=== PATIENT | female | born 1990 | race Caucasian/White ===

== ENCOUNTER 2021-01-21 07:00 | Outpatient (CLI) | payer OTHER, SELFPAY ==
[2021-01-21 07:08] VITALS: BMI 34.6
[2021-01-21] MEDS: Lactated Ringers 1,000 ML 125 ML IV (07:25)
[2021-01-21 07:27] VITALS: BP 117/71; PULSE 89
[2021-01-21 07:31] VITALS: PULSE 82; TEMP 37.5; O2SAT 97
--- NOTE | 2021-01-21 08:47 | PCM.HP.OB ---
- Problem List (1) 37 weeks gestation of Status: Acute (2) Breech presentation Status: Acute History Date of Admission: 01/21/21 Final LASHAUN: 02/08/21 Gestational age: 37 Weeks and 3 Days History of this : This is a 30 year-old at 37w3d who presents for a scheduled external cephalic version for breech presentation. She has no complaints today. Allergies amoxicillin [From Augmentin] Allergy (Verified 01/21/21 07:41) NEEDS FOLLOW-UP clavulanic acid [From Augmentin] Allergy (Verified 01/21/21 07:41) NEEDS FOLLOW-UP Penicillins Allergy (Verified 01/21/21 07:41) NEEDS FOLLOW-UP Home Medications: Home Medications Prenatabs FA 01/21/21 Vitamin D 01/21/21 Number of Fetus(es): 1 NST - FHR Rate Baby A Baseline: 140 Variability:: Moderate Accelerations:: 15 x 15 Decelerations:: None NST Reactive:: Yes FHR Category:: Category I Uterine Activity:: No regular ctx's History Past Pregnancies: Past Pregnancies Delivery Date Name GA/ Weeks Outcome Route Wt Sex Labor Length Anesthesia Delivery Location Provider FOB Labs: See [facility] records Physical Exam Vitals: Vital Signs Temp Pulse BP Pulse Ox 99.5 F H 82 117/71 97 01/21/21 07:31 01/21/21 07:31 01/21/21 07:27 01/21/21 07:31 General: Alert, No apparent distress HEENT: Atraumatic Abdomen: Soft, Non Tender, Gravid Extremities:: No edema Neurological: Neuro grossly intact Presentation: Breech Assessment/Plan All Active Problems 37 weeks gestation of (Acute) Breech presentation (Acute) This is a 30 year-old who presents at 37w3d for ECV for breech presentation. - TAUS performed confirming breech presentation. Discussed r/b/a to an external cephalic version with patient. She gave consent and desires to proceed with the scheduled version. She understands an alternative is a schedule section and that risks include but are not limited to placental abruption, rupture of membranes, cord prolapse, distress, changes in heart rate, need for an emergent section - Rh positive - NST reactive - monitoring after procedure - See op report for procedure
--- NOTE | 2021-01-21 08:54 | PCM.OPRPT ---
Problem List (1) 37 weeks gestation of Status: Acute (2) Breech presentation Status: Acute Report of Operation Date of Procedure: 01/21/21 Pre-Operative Diagnosis: 37 week gestation, breech presentation Post-Operative Diagnosis: As above Surgery/Procedure Performed:: External cephalic version Description of Surgical Findings:: Breech presentation on ultrasound at the start and end of the procedure internal affairs commander: Argenis Farias - She assisted with the entire procedure from start to finish. She also assisted in counseling the patient before and after the procedure Special Medications: None Specimen's removed: None Drains: None Estimated Blood Loss (mL): None Fluids Replaced: None Description of Procedure: A bedside ultrasound was performed which confirmed the single intrauterine and doretha breech presentation. NST reactive. She had an ultrasound performed 2 days prior showing a posterior placenta and JUNE 7.1 cm. The pelvis was located in the maternal LLQ, spine along the maternal left side, and head in the maternal RUQ. Using manual pressure, the fetus was manipulated with gentle pressure from the palms against the buttock and posterior occiput to stimulate a forward roll. In total, three attempts where made. heart rates were obtained between each attempt and were reassuring. On the final attempt, the fetus shifted into a transverse lie and then spontaneously went back to breech presentation. Following the procedure, she was placed on the monitor to monitor heart rate for a total of 1 hour. Discussed to call with pain, bleeding, leaking fluid, DFM. Will assess if ready for discharge after 1 hour of monitoring. Grafts/Implants Used: None - Complications None - Admit VTE Documentation VTE Present on Admission: No
[2021-01-21 09:23] VITALS: BP 116/70; PULSE 70
== END 2021-01-21 09:30 | disposition home or self-care (01) ==
LOC: WPOUT 07:06 → WP 07:07
PROVIDERS: PCP Family Medicine; Referring Provider Obstetrics & Gynecology; Visit Provider Obstetrics & Gynecology
DX: O32.1XX0 Maternal care for breech presentation, not applicable or unspecified (principal); Z3A.37 37 weeks gestation of pregnancy
CPT/HCPCS: 96365; 96366; 36415; 59025; 59050; 59412; 99218; J7120; G0378

== ENCOUNTER → 2021-01-28 16:36 | Outpatient (CLI) | payer OTHER, SELFPAY ==
[2021-01-21 07:08] VITALS: BMI 34.6
== END ==
PROVIDERS: PCP Family Medicine; Visit Provider Obstetrics & Gynecology
DX: Z03.818 Encounter for observation for suspected exposure to other biological agents ruled out (principal)
CPT/HCPCS: 87635; C9803; U0002

== ENCOUNTER 2021-02-02 04:55 | Inpatient (IN) | payer OTHER, SELFPAY ==
[2021-02-02] VITALS (17 sets, daily range): BP systolic 90–126; BP diastolic 55–79; PULSE 66–97; RESP 16; TEMP 36.1–37.1; O2SAT 95–99; BMI 34.9
[2021-02-02] MEDS: Lactated Ringers 1,000 ML 999 ML IV (05:20)
[2021-02-02 05:36] LABS: Absolute Lymphocyte Count 1.66 X10^3/uL (0.83-4.51); Absolute Neutrophil Count 5.4 X10^3/uL (2.0-7.7); Basophil# 0.06 X10^3/uL; Basophil% 0.8 % (0-1); Eosinophil# 0.12 X10^3/uL; Eosinophils% 1.5 % (0-5); Hematocrit 40.5 % (37-47); Hemoglobin 13.7 g/dL (12.0-15.0); Lymphocyte # 1.66 X10^3/ul (4.0); Lymphocyte % 21.1 % (19-41); Mean Corp Hgb Conc 33.8 g/dL (32-36); Mean Corpuscular Hgb 31.3 pg (27.0-32.0); Mean Corpuscular Volume 92.5 fL (81-99); Mean Platelet Vol. 12.7 fl (6.2-12.0); Monocyte# 0.61 X10^3/uL; Monocyte% 7.7 % (0-10); NRBC Flagged by Analyzer 0 % (0-5); Neutrophil % 68.5 % (47-70); Platelet Count 233 K/mm3 (150-450); RBC Distribution Width CV 12.4 % (11.6-14.6); RBC Distribution Width SD 42.3 fl (35.1-43.9); Red Blood Count 4.38 M/mm3 (4.2-5.4); White Blood Count 7.9 K/mm3 (4.4-11.0)
[2021-02-02] MEDS: Acetaminophen 500 MG Tablet 1000 MG PO ×3 (06:30→18:00)
[2021-02-02] MEDS: Lactated Ringers 1,000 ML 150 ML IV (06:31)
[2021-02-02] MEDS: Sodium Citrate/Citric Acid 30 ML UDC PO (07:02)
[2021-02-02] MEDS: Cefazolin 2 GM in 0.9% Normal Saline 100 ML IV (07:20)
[2021-02-02] MEDS: Oxytocin 30 units/NS 500 ml 30 UNITS/500 ML IV.SOLN 167 UNITS IV (08:45)
[2021-02-02] MEDS: Ketorolac 30 MG/ML Syringe IV ×3 (09:02→20:00)
[2021-02-02] MEDS: Senna/Docusate Sodium 1 Tablet PO (10:43)
[2021-02-02] MEDS: Lactated Ringers 1,000 ML 100 ML IV (11:45)
[2021-02-02] MEDS: 0.9% Saline Lock 10 ML Syringe IV ×2 (14:21→20:00)
[2021-02-02] MEDS: Enoxaparin 40 MG/0.4 ML Syringe SC (20:01)
[2021-02-03 00:02] VITALS: BP 110/57; PULSE 80; RESP 15; TEMP 36.6; O2SAT 95
[2021-02-03] MEDS: 0.9% Saline Lock 10 ML Syringe IV (02:24)
[2021-02-03] MEDS: Ketorolac 30 MG/ML Syringe IV (02:24)
[2021-02-03 05:45] VITALS: BP 106/66; PULSE 77; RESP 16; TEMP 36.6; O2SAT 96
[2021-02-03 06:05] LABS: Hematocrit 35.5 % (37-47); Hemoglobin 11.9 g/dL (12.0-15.0); Mean Corp Hgb Conc 33.5 g/dL (32-36); Mean Corpuscular Hgb 31.8 pg (27.0-32.0); Mean Corpuscular Volume 94.9 fL (81-99); Mean Platelet Vol. 12.1 fl (6.2-12.0); Platelet Count 170 K/mm3 (150-450); RBC Distribution Width CV 12.6 % (11.6-14.6); RBC Distribution Width SD 44.1 fl (35.1-43.9); Red Blood Count 3.74 M/mm3 (4.2-5.4); White Blood Count 10.3 K/mm3 (4.4-11.0)
[2021-02-03] MEDS: Acetaminophen 500 MG Tablet 1000 MG PO ×4 (06:31→18:56)
[2021-02-03 08:04] VITALS: BP 121/59; PULSE 84; RESP 18; TEMP 36.3
--- NOTE | 2021-02-03 08:35 | PCM.HPOB.BLA ---
- Problem List (1) Breech presentation Status: Acute (2) 39 weeks gestation of Status: Acute History and Physical Date of Admission: 02/02/21 DATE OF SERVICE: January 26, 2021 ? PROBLEM:?breech presentation ? DIAGNOSIS:?breech presentation ? PAST SURGICAL HISTORY:? PAST SURGICAL HISTORYExpand by Default PAST SURGICAL HISTORY Procedure Laterality Date ? PAST SURGICAL HISTORY OF ? 2009 ? Right foot-ORIF, stress fx. ? PAST MEDICAL HISTORY:? PAST MEDICAL HISTORYExpand by Default PAST MEDICAL HISTORY Diagnosis Date ? Abnormal glandular Papanicolaou smear of cervix 06/2017 ? Abn. Pap smear (cervix), LGSIL ? Allergic rhinitis due to other allergen ? ? Anemia ? ? navicular stress fracture ? ? SUBJECTIVE:?No ctx, vb, lof. Good FM.? ? SOCIAL HISTORY:? SOCIAL HISTORYExpand by Default Social History ? Tobacco Use ? Smoking status: Never Smoker ? Smokeless tobacco: Never Used Substance Use Topics ? Alcohol use: Not Currently ? ? Comment: Occasionally ? Drug use: No ? Current Outpatient Medications on File Prior to Visit Medication Sig ? cholecalciferol, vitamin D3, (VITAMIN D3 ORAL) Take by mouth. ? no122/iron/folic acid ( MULTI ORAL) Take by mouth once daily. No current facility-administered medications on file prior to visit. ALLERGIESExpand by Default ALLERGIES Allergen Reactions ? Augmentin [Amoxicil* Rash ? Adhesive Tape (Erin* Rash ? ? Adhesive spray ? Penicillins ? Rash ? OBJECTIVE: ? VITALS:? BP 110/78 ? Wt 217 lb 3.2 oz (98.5 kg) ? LMP 05/04/2020 (Exact Date) ? BMI 35.06 kg/m? ? HEENT: ?Normocephalic, atraumatic, Mucus membranes moist without lesions. ? NECK: ???Soft and Supple. ?No adenopathy , thyromegaly or bruits. ? SKIN: No lesions. ? CHEST: Clear to auscultation. ?No wheezes or rales. ?Good air exchange. ? HEART: Regular rate and rhythm ?No S3 or S4. ?No gallops or rubs. ? BACK: Nontender with no CVA tenderness. ? ABDOMEN: Soft, non-tender, non-distended, no masses, no hepatosplenomegaly. ? LOWER EXTREMITIES: There was no pitting edema, no palpable cords and no skin changes. ? ? ? ASSESSMENT:?breech presentation ? PLAN:?Patient had attempted ECV. ?Baby breech today. Discussed section in detail and questions answered. The rationale for the proposed surgery was discussed in addition to risks, benefits, and alternatives. ?General pre- and post-operative care was reviewed. ?Questions were answered. ?After discussion, the patient indicated a desire to proceed with the planned surgery. Consent signed. To schedule surgery and covid test.? ? Prabha Brooks,?DO
--- NOTE | 2021-02-03 08:37 | OP.PCM_ITS ---
Problem List (1) Breech presentation Status: Acute (2) 39 weeks gestation of Status: Acute (3) S/P section Status: Acute Report of Operation Date of Procedure: 02/02/21 Pre-Operative Diagnosis: 39 week gestation, breech presentation Post-Operative Diagnosis: As above Surgery/Procedure Performed:: PLTCS via pfannenstiel incision Description of Surgical Findings:: VMI in breech presentation. Clear fluid. Normal appearing and intact placenta with 3 VC. Normal appearing uterus and bilateral tubes and ovaries. product safety engineer: Oskar Whitfield assisted for the entire surgery from start of incision to closure. He closed the skin incision and placed the dressing. Type of Anesthesia:: Spinal Special Medications: None Specimen's removed: Placenta Drains: Cisneros Estimated Blood Loss (mL): 400 Fluids Replaced: See anesthesia record Description of Procedure: The patient was taken to the operating room where spinal anesthesia was found to be adequate. She was prepped and draped in the dorsal position with a leftward tilt. A scalpel was used to make a Pfannenstiel skin incision and this was carried down to the underlying layer of fascia. Fascia was incised in midline. The fascia was extended laterally using Guevara scissors. The fascia was dissected off of the rectus muscles with combination of sharp and blunt dissection. Rectus muscles were midline. The peritoneum was entered sharply with good visualization of the bladder. The incision was extended bluntly. A low transverse incision was made on the uterus with a scalpel. The uterine incision was extended bluntly. Clear fluid was present. Viable male was delivered in breech presentation atraumatically and without any force or delay. The head was flexed during delivery. The cord was clamped and cut after a brief delay. The baby was handed off to the nursery staff. The placenta was deliv ered with manual extraction. The placenta was normal-appearing and intact with a three-vessel cord. Uterus was exteriorized. The uterus was closed with Vicryl in 2 layers. Several additional [id number] sutures were placed for hemostasis. Uterus was placed back into the abdomen. Normal adnexa were noted. Uterine incision was hemostatic. Arrista was placed over the hysterotomy. The peritoneum was closed with Vicryl in a running fashion. The rectus muscles were noted to be hemostatic. The fascia was closed with Vicryl in a running fashion. The subcutaneous space was made hemostatic with Bovie cautery. Subcutaneous space was reapproximated with vicryl. The skin was closed with Monocryl subcuticular fashion. Dressing was placed. Instrument, sponge, needle counts were correct. The patient was taken to recovery in stable condition. Grafts/Implants Used: None - Complications None - Admit VTE Documentation VTE Present on Admission: No VTE Mechan Device Prophylaxis: SCD's VTE Pharm Prophylaxis ordered?: No
[2021-02-03] MEDS: Ibuprofen 600 MG Tablet PO ×3 (09:22→20:01)
[2021-02-03] MEDS: Senna/Docusate Sodium 1 Tablet PO (12:45)
[2021-02-03 13:50] VITALS: BP 115/65; PULSE 70; RESP 16; TEMP 36.1
[2021-02-03] MEDS: Enoxaparin 40 MG/0.4 ML Syringe SC (20:01)
[2021-02-03 21:15] VITALS: BP 108/60; PULSE 82; RESP 16; TEMP 36.3; O2SAT 96
[2021-02-04] MEDS: Acetaminophen 500 MG Tablet 1000 MG PO ×4 (00:13→19:05)
[2021-02-04] MEDS: Ibuprofen 600 MG Tablet PO ×4 (02:17→20:46)
[2021-02-04 02:50] VITALS: BP 113/79; PULSE 78; RESP 18; TEMP 36.6; O2SAT 97
[2021-02-04 08:38] VITALS: BP 121/67; PULSE 83; RESP 16; TEMP 36.6; O2SAT 97
--- NOTE | 2021-02-04 09:04 | PN.OBGYN_ITS ---
Patient Problems: Active and Suspected Problems Breech presentation (Acute) 39 weeks gestation of (Acute) S/P section (Acute) Subjective: Patient is doing well. Pain well controlled. Ambulating and voiding without difficulty. Lochia normal. She is breast-feeding. Tolerating regular diet without nausea or vomiting. Denies lightheadedness, dizziness, chest pain, shortness of breath, leg pain. - Physical Exam Vitals/I&O's: Vital Signs Temp Pulse Resp BP Pulse Ox 97.9 F 83 16 121/67 H 97 02/04/21 08:38 02/04/21 08:38 02/04/21 08:38 02/04/21 08:38 02/04/21 08:38 Oxygen Delivery Method Room Air Weight: 216 lb 9.6 oz Body Mass Index (BMI) 34.9 Intake and Output for Last 24 Hours 02/02/21 02/03/21 02/04/21 23:59 23:59 23:59 Intake Total 2265 / 2265 Output Total 700 / 700 Balance 1565 / 1565 General: Alert, No apparent distress HEENT: Atraumatic Abdomen: Soft, Non-Distended, - - ATTP, FF@U-1 Extremities: No edema, No Calf Tenderness Skin: No rashes Neurological: Neuro grossly intact Psych/Mental Status: Normal Affect, Appropriate Current Medications Acetaminophen (Acetaminophen 500 Mg Tablet) 1,000 mg PO Q6 [facility] Last Admin: 02/04/21 06:45 Dose: 1,000 mg Documented by: Bisacodyl (Bisacodyl 10 Mg Suppository) 10 mg RC UD PRN PRN Reason: If no BM Enoxaparin Sodium (Enoxaparin 40 Mg/0.4 Ml Syringe) 40 mg SC DAILY@1999 [facility] Last Admin: 02/03/21 20:01 Dose: 40 mg Documented by: Hydrocortisone (Hydrocortisone 2.5% Crm) 1 applic TOPICAL TID PRN PRN; Protocol PRN Reason: Discomfort Ibuprofen (Ibuprofen 600 Mg Tablet) 600 mg PO Q6H [facility] Last Admin: 02/04/21 08:42 Dose: 600 mg Documented by: Methylergonovine Maleate (Methylergonovine 0.2 Mg/Ml Ampul) 0.2 mg IM X1 PRN PRN Reason: Uterine Atony Naloxone HCl (Naloxone 0.4 Mg/Ml Syringe) 0.02 mg IV Q1M PRN PRN Reason: RR <10 and pt unresponsive Ondansetron HCl (Ondansetron 4 Mg/2 Ml Vial) 4 mg IV Q4H PRN PRN PRN Reason: Nausea Oxycodone HCl (Oxycodone 5 Mg Tablet) 5 - 10 mg PO Q4H PRN PRN PRN Reason: Pain Score 4-10 Prochlorperazine Edisylate (Prochlorperazine 10 Mg/2 Ml Vial) 10 mg IV Q6H PRN PRN PRN Reason: NAUSEA Senna/Docusate Sodium (Senna/Docusate Sodium 1 Tablet) 0 tablet PO DAILY [facility] Last Admin: 02/03/21 12:45 Dose: 1 tablet Documented by: Simethicone (Simethicone 80 Mg Tablet) 80 mg PO PCHS PRN PRN Reason: Indigestion/stomach pain Sodium Chloride (0.9% Saline Lock 10 Ml Syringe) 5 - 15 ml IV UD PRN PRN Reason: SALINE FLUSH Last Admin: 02/03/21 02:24 Dose: 15 ml Documented by: Medical Necessity - Tobacco Use Smoking Status: Never smoker Assessment/Plan All Active Problems 37 weeks gestation of (Acute) Breech presentation (Acute) 39 weeks gestation of (Acute) S/P section (Acute) Pt is postop day 2 from a primary for breech presentation. She is doing well. Meeting milestones for discharge. Baby is in special care nursery for blood sugar monitoring. She desires to stay another night.
[2021-02-04] MEDS: Senna/Docusate Sodium 1 Tablet PO (10:39)
[2021-02-04 13:22] VITALS: BP 119/77; PULSE 77; RESP 16; TEMP 36.4; O2SAT 96
[2021-02-04 20:42] VITALS: BP 111/70; PULSE 72; RESP 16; TEMP 36.8; O2SAT 98
[2021-02-04] MEDS: Enoxaparin 40 MG/0.4 ML Syringe SC (20:46)
[2021-02-05] MEDS: Acetaminophen 500 MG Tablet 1000 MG PO ×3 (00:21→13:51)
[2021-02-05 02:39] VITALS: BP 136/79; PULSE 76; RESP 16; TEMP 36.6; O2SAT 97
[2021-02-05] MEDS: Ibuprofen 600 MG Tablet PO ×3 (02:42→15:01)
--- NOTE | 2021-02-05 06:07 | PN.OBGYN_ITS ---
Patient Problems: Active and Suspected Problems Breech presentation (Acute) 39 weeks gestation of (Acute) S/P section (Acute) Subjective: Doing well. Pain well controlled. Ambulating and voiding without difficulty. Tolerating regular diet without nausea or vomiting. Denies lightheadedness, dizziness, chest pain, shortness of breath, leg pain. He was in special care nursery. She is pumping. - Physical Exam Vitals/I&O's: Vital Signs Temp Pulse Resp BP Pulse Ox 97.9 F 76 16 136/79 H 97 02/05/21 02:39 02/05/21 02:39 02/05/21 02:39 02/05/21 02:39 02/05/21 02:39 Oxygen Delivery Method Room Air Weight: 216 lb 9.6 oz Body Mass Index (BMI) 34.9 General: Alert, No apparent distress HEENT: Atraumatic Extremities: No edema Skin: No rashes Neurological: Neuro grossly intact Psych/Mental Status: Normal Affect, Appropriate Current Medications Acetaminophen (Acetaminophen 500 Mg Tablet) 1,000 mg PO Q6 [facility] Last Admin: 02/05/21 00:21 Dose: 1,000 mg Documented by: Bisacodyl (Bisacodyl 10 Mg Suppository) 10 mg RC UD PRN PRN Reason: If no BM Enoxaparin Sodium (Enoxaparin 40 Mg/0.4 Ml Syringe) 40 mg SC DAILY@1999 [facility] Last Admin: 02/04/21 20:46 Dose: 40 mg Documented by: Hydrocortisone (Hydrocortisone 2.5% Crm) 1 applic TOPICAL TID PRN PRN; Protocol PRN Reason: Discomfort Ibuprofen (Ibuprofen 600 Mg Tablet) 600 mg PO Q6H [facility] Last Admin: 02/05/21 02:42 Dose: 600 mg Documented by: Methylergonovine Maleate (Methylergonovine 0.2 Mg/Ml Ampul) 0.2 mg IM X1 PRN PRN Reason: Uterine Atony Naloxone HCl (Naloxone 0.4 Mg/Ml Syringe) 0.02 mg IV Q1M PRN PRN Reason: RR <10 and pt unresponsive Ondansetron HCl (Ondansetron 4 Mg/2 Ml Vial) 4 mg IV Q4H PRN PRN PRN Reason: Nausea Oxycodone HCl (Oxycodone 5 Mg Tablet) 5 - 10 mg PO Q4H PRN PRN PRN Reason: Pain Score 4-10 Prochlorperazine Edisylate (Prochlorperazine 10 Mg/2 Ml Vial) 10 mg IV Q6H PRN PRN PRN Reason: NAUSEA Senna/Docusate Sodium (Senna/Docusate Sodium 1 Tablet) 0 tablet PO DAILY [facility] Last Admin: 02/04/21 10:39 Dose: 1 tablet Documented by: Simethicone (Simethicone 80 Mg Tablet) 80 mg PO PCHS PRN PRN Reason: Indigestion/stomach pain Sodium Chloride (0.9% Saline Lock 10 Ml Syringe) 5 - 15 ml IV UD PRN PRN Reason: SALINE FLUSH Last Admin: 02/03/21 02:24 Dose: 15 ml Documented by: Medical Necessity - Tobacco Use Smoking Status: Never smoker Assessment/Plan All Active Problems 37 weeks gestation of (Acute) Breech presentation (Acute) 39 weeks gestation of (Acute) S/P section (Acute) Is day 3 from a primary section for breech presentation. She is doing well. She is meeting all milestones to go home. She is unsure about discharge at this time. Baby is in special care nursery. Will check in later this afternoon and see if she desires discharge.
--- NOTE | 2021-02-05 06:10 | PCM.DCCSEC ---
Discharge Diet: No Restrictions Discharge Activity: May not drive while taking narcotic pain medications., May Shower May resume sexual activity in: 6 weeks Ice area for (Minutes): 15 Weight Bearing Status: Weight bearing as tolerated Lifting Restrictions: Nothing heavier than baby Call your doctor if your incision/area has: Sudden Increased Bleeding, Increased Pain/ Swelling, Increased Redness, Foul Smelling Discharge, Swelling at the incision site Call your doctor if you observe: Fever of 101 or Higher, Inability to urinate, Inability to have a bowel movement, Using more than one pad per hour, Shortness of breath, Dizziness, Fainting spells, Swelling in the ankles, Chest pain, Increased palpitations (irregular heartbeat), Calf discomfort, Uncontrolled pain Suture Line Care: Avoid Pulling/Pushing, Avoid Pinching/Bending Change Dressing in (Days):: 1 - Ok to remove dressing while in shower on day 4 after your surgery Cleanse incision/area with: Soap & Water Additional Instructions: If you experience any of the following, contact your healthcare provider. Bleeding that soaks a pad every hour for 2 hours Fever 100.4 or higher Unrelieved incision or abdominal pain Swelling, redness, discharge or bleeding from your incision or episiotomy site Your incision begins to separate Problems urinating (including inability to urinate or burning while urinating). Visual changes Severe headache Flu-like symptoms Pain or redness in one of both of your breasts Pain, warmth, tenderness or swelling in your legs, especially the calf area Frequent nausea and vomiting Symptoms of depression or anxiety If you experience any of the following, call 911 or go to the nearest Emergency Room. Chest pain Problems breathing Seizure activity Partial or complete paralysis of a body part, slurred speech, weakness or drooping of the face, or a sudden inability to walk or hold your balance Allergies/Adverse Reactions: Allergies adhesive Allergy (Verified 02/02/21 05:21) Rash amoxicillin [From Augmentin] Allergy (Verified 02/02/21 05:21) Rash clavulanic acid [From Augmentin] Allergy (Verified 02/02/21 05:21) Rash Penicillins Allergy (Verified 02/02/21 05:21) Rash Medications to take at Discharge Prenatabs FA 1 tablet PO DAILY 01/21/21 Vitamin D 2,000 mg PO DAILY 01/21/21 Docusate Sodium [Colace] 100 mg PO BID #30 cap 02/05/21 Ibuprofen [Motrin] 600 mg PO Q6H PRN PRN #30 tab 02/05/21 Oxycodone HCl/Acetaminophen [Percocet 5/325] 1 tablet PO Q6H PRN PRN 7 Days #10 tablet 02/05/21 The following prescriptions were given: Docusate Sodium [Colace] 100 mg PO BID #30 cap Transmission Status: Pending to [address] Ibuprofen [Motrin] 600 mg PO Q6H PRN PRN #30 tab PRN Reason: Pain Score 6-10 Transmission Status: Pending to [address] Oxycodone HCl/Acetaminophen [Percocet 5/325] 1 tablet PO Q6H PRN PRN 7 Days #10 tablet PRN Reason: Pain Score 6-10 Transmission Status: Received by [place] [id number] [facility]. Follow-Up: Call to make an appointment with your doctor for an incision check in 1-2 weeks. You will also need a 6 week post- follow up appointment. Test results from this visit will be discussed in further detail at your follow-up appointment, if applicable. Please Follow Up With: Prabha Brooks DO When: 1 week for incision check. 6 weeks for visit Primary Care Physician: Darwin Kennedy III, MD [Primary Care Provider] -
[2021-02-05 08:29] VITALS: BP 123/71; PULSE 80; RESP 16; TEMP 37.1; O2SAT 97
[2021-02-05] MEDS: Senna/Docusate Sodium 1 Tablet PO (10:48)
[2021-02-05 15:02] VITALS: BP 114/76; PULSE 83; RESP 16; TEMP 37; O2SAT 97
--- NOTE | 2021-02-09 15:10 | PCM.DC.BLA ---
Discharge Summary Date of Admission: 02/03/21 Date of Discharge: 02/05/21 Summary: Patient presented for a primary section on 02/03/2021 for breech presentation. She had an attempted ECV a few weeks prior to section. See op note for details. The patient was tolerating a regular diet, ambulating and voiding without difficulty, and pain was well controlled on day of discharge. She was discharged home in good condition with follow up in the office. Patient Problems: Active and Suspected Problems Breech presentation (Acute) 39 weeks gestation of (Acute) S/P section (Acute) - Physical Exam Vitals/I&O's: Vital Signs Temp Pulse Resp BP Pulse Ox 98.6 F 83 16 114/76 97 02/05/21 15:02 02/05/21 15:02 02/05/21 15:02 02/05/21 15:02 02/05/21 15:02 Oxygen Delivery Method Room Air Weight: 216 lb 9.6 oz Body Mass Index (BMI) 34.9
== END 2021-02-05 17:50 | disposition home or self-care (01) | DRG 788 ==
PROVIDERS: Admitting Provider Obstetrics & Gynecology; PCP Family Medicine; Visit Provider Obstetrics & Gynecology
DX: O32.1XX0 Maternal care for breech presentation, not applicable or unspecified (principal); Z37.0 Single live birth; Z3A.39 39 weeks gestation of pregnancy
CPT/HCPCS: 85025; 85027; 86850; 86900; 86901; 99218; 99251; J7120; A4216; G0378; G0463; J2405

== ENCOUNTER 2021-03-05 13:55 | Outpatient (CLI) | payer OTHER, SELFPAY ==
[2021-02-02 05:18] VITALS: BMI 34.9
== END 2021-03-05 15:00 | disposition home or self-care (01) ==
LOC: WPOUT 13:59 → WP 14:00
PROVIDERS: PCP Family Medicine; Visit Provider Obstetrics & Gynecology
DX: Z39.1 Encounter for care and examination of lactating mother (principal)
CPT/HCPCS: 96158; 96159

== ENCOUNTER 2023-07-04 14:45 | Outpatient (CLI) | payer OTHER, SELFPAY ==
[2023-07-04 14:52] VITALS: BP 126/68; PULSE 106
[2023-07-04 14:53] VITALS: TEMP 36.9
[2023-07-04 15:18] VITALS: BMI 34.7
[2023-07-04 15:45] VITALS: BP 106/54; PULSE 86
[2023-07-04 16:42] LABS: ROM Internal Control Test YES-OK TO RESULT pt. (Internal QC); ROM Patient Test Negative (Negative); Record Kit Lot#, ROM+ K1374
[2023-07-04 16:48] VITALS: BP 116/60; PULSE 78
[2023-07-04 17:12] VITALS: BP 109/56; PULSE 87; TEMP 36.6
--- NOTE | 2023-07-05 06:24 | OB.TRI.NOTE ---
HPI - General General Date of Admission: 07/04/23 Date of Service: 07/04/23 Chief Complaint: increased BP at home HPI Narrative REINA MONTANO, is a 32 F who presents planing of possible rupture membranes and increased blood pressure at home. She denied any vaginal bleeding or leaking of fluid. She not appreciate any regular contractions Maternal Data Information Final LASHAUN: 07/04/23 Gestational age: 40 PFSH PFSH Home Medications Prenatabs FA 1 tab PO DAILY 01/21/21 [History Last Taken 07/04/23] Vitamin D 2,000 mg PO DAILY supplement 01/21/21 [History Last Taken 07/04/23] docusate sodium 100 mg capsule 100 mg PO BID #30 caps 02/05/21 [Rx Last Taken Unknown] ibuprofen 600 mg tablet 600 mg PO Q6H PRN PRN Pain Score 6-10 #30 tabs 02/05/21 [Rx Last Taken Unknown] Allergy/AdvReac Type Severity Reaction Status Date / Time adhesive Allergy Rash Verified 02/02/21 05:21 amoxicillin [From Augmentin] Allergy Rash Verified 02/02/21 05:21 clavulanic acid Allergy Rash Verified 02/02/21 05:21 [From Augmentin] Penicillins Allergy Rash Verified 02/02/21 05:21 Social History Smoking Status: Never smoker History Elective abortions Hx Para 0 Spontaneous abortions Hx # Term Pregnancies Ectopic pregnancies Hx # Pregnancies Multiple births # of living children NST FHR Rate Baby A Baseline: 130 Variability:: Moderate Accelerations:: 15 x 15 Decelerations:: None NST Reactive:: Yes FHR Category:: Category I Uterine Activity:: irritability to irreg ctxs Assessment & Plan (1) 40 weeks gestation of : PLAN: No evidence of spontaneous rupture of membranes. Blood pressure is normal, elevated at home. No signs or symptoms of preeclampsia. Follow-up in the office in 1 to 2 days or as needed. (2) S/P section: (3) Vaginal discharge during in third trimester:
== END 2023-07-04 17:03 | disposition home or self-care (01) ==
LOC: WPOUT 14:48 → WP 14:49
PROVIDERS: Referring Provider Obstetrics & Gynecology; Visit Provider Obstetrics & Gynecology
DX: O99.891 Other specified diseases and conditions complicating pregnancy (principal); O34.219 Maternal care for unspecified type scar from previous cesarean delivery; N89.8 Other specified noninflammatory disorders of vagina; Z3A.40 40 weeks gestation of pregnancy
CPT/HCPCS: 59025; 59050; 84112; 99221; G0378

== ENCOUNTER 2023-07-10 09:30 | Inpatient (IN) | payer OTHER, SELFPAY ==
--- NOTE | 2023-07-09 12:11 | PCM.HP.BLA ---
History and Physical Date of Admission: 07/10/23 Expand All Collapse All DATE OF SERVICE: July 06, 2023 ? PROBLEM: history prior section, single IUP, 40 week gestation ? PAST SURGICAL HISTORY: PAST SURGICAL HISTORY PAST SURGICAL HISTORY Procedure Laterality Date ? I&D ABCESS/CYST SIMPLE/SINGLE ? ? ? abcess right breast ? PAST SURGICAL HISTORY OF ? 11/26/2009 ? Right foot-ORIF, stress fx. ? ? PAST MEDICAL HISTORY: PAST MEDICAL HISTORY PAST MEDICAL HISTORY Diagnosis Date ? Abnormal glandular Papanicolaou smear of cervix 06/2017 ? Abn. Pap smear (cervix), LGSIL ? Abscess of breast, ? ? right breast ? Allergic rhinitis due to other allergen ? ? Anemia ? ? navicular stress fracture ? ? ? SUBJECTIVE: No regular ctx, vb, lof. Good FM ? SOCIAL HISTORY: SOCIAL HISTORY Social History ? Tobacco Use ? Smoking status: Never ? Smokeless tobacco: Never Vaping Use ? Vaping Use: Never used Substance Use Topics ? Alcohol use: Not Currently ? ? Comment: Occasionally ? Drug use: No ? ? Current Outpatient Medications on File Prior to Visit Medication Sig ? CHOLINE ORAL Take by mouth. ? cholecalciferol, vitamin D3, (VITAMIN D3 ORAL) Take by mouth. ? no122/iron/folic acid ( MULTI ORAL) Take by mouth once daily. ? No current facility-administered medications on file prior to visit. ? ALLERGIES ALLERGIES Allergen Reactions ? Augmentin [Amoxicil* Rash ? Adhesive Rash ? Adhesive Tape (Erin* Rash ? ? Adhesive spray ? Penicillins Rash ? ? ? OBJECTIVE: ? VITALS: BP 110/70 Wt 213 lb 9.6 oz (96.9 kg) LMP 09/27/2022 (Exact Date) BMI 34.48 kg/m? ? HEENT: Normocephalic, atraumatic, Mucus membranes moist without lesions. ? NECK: Soft and Supple. No adenopathy , thyromegaly or bruits. ? SKIN: No lesions. ? CHEST: No increased resp effort. ? HEART: Regular rate. ? BACK: Nontender. ? ABDOMEN: Soft, non-tender, non-distended, no masses, no hepatosplenomegaly. ? LOWER EXTREMITIES: There was no pitting edema, no palpable cords and no skin changes. ? ? ? ASSESSMENT: repeat section ? PLAN: 1) Discussed repeat section. The rationale for the proposed surgery was discussed in addition to risks, benefits, and alternatives. General pre- and post-operative care was reviewed. Questions were answered. After discussion, the patient indicated a desire to proceed with the planned surgery. ? Prabha Brooks, DO ? ?5:38 PM
[2023-07-10] VITALS (15 sets, daily range): BP systolic 95–131; BP diastolic 38–72; PULSE 62–84; RESP 16; TEMP 35.9–37.1; O2SAT 95–100; BMI 35.0
[2023-07-10] MEDS: Lactated Ringers 1,000 ML 999 ML IV (10:06)
[2023-07-10 10:15] LABS: Absolute Lymphocyte Count 1.48 X10^3/uL (0.83-4.51); Absolute Neutrophil Count 5.4 X10^3/uL (2.0-7.7); Basophil# 0.06 X10^3/uL; Basophil% 0.8 % (0-1); Eosinophil# 0.12 X10^3/uL; Eosinophils% 1.6 % (0-5); Hematocrit 41.3 % (37-47); Hemoglobin 13.7 g/dL (12.0-15.0); Lymphocyte # 1.48 X10^3/ul (0.83-4.51); Lymphocyte % 19.1 % (19-41); Mean Corp Hgb Conc 33.2 g/dL (32-36); Mean Corpuscular Hgb 31.1 pg (27.0-32.0); Mean Corpuscular Volume 93.7 fL (81-99); Mean Platelet Vol. 11.7 fl (6.2-12.0); Monocyte% 7.8 % (0-10); NRBC Flagged by Analyzer 0 % (0-5); Neutrophil # 5.43 X10^3/uL (2.7-7.7); Neutrophil % 70.1 % (47-70); Platelet Count 230 K/mm3 (150-450); RBC Distribution Width CV 12.6 % (11.6-14.6); RBC Distribution Width SD 43.4 fl (35.1-43.9); Red Blood Count 4.41 M/mm3 (4.2-5.4); White Blood Count 7.7 K/mm3 (4.4-11.0)
[2023-07-10] MEDS: Acetaminophen 500 MG Tablet 1000 MG PO ×2 (10:15→18:01)
[2023-07-10 10:48] LABS: Syphilis Antibodies Non-reactive
[2023-07-10] MEDS: Lactated Ringers 1,000 ML 150 ML IV (11:05)
[2023-07-10] MEDS: Sodium Citrate/Citric Acid 30 ML UDC PO (11:22)
[2023-07-10] MEDS: Cefazolin 2 GM in 0.9% Normal Saline 100 ML IV (11:36)
--- NOTE | 2023-07-10 12:35 | OP.PCM_ITS ---
Details Operative Information Date of Procedure: 07/10/23 Pre-Operative Diagnosis: repeat cs, 40 weeks gestation Post-Operative Diagnosis: same, live male infant Indications for : Repeat Elective Classification: Scheduled Procedure Type: low transverse senior capital markets specialist #1: Francoise Alves Type of Anesthesia: Spinal Antibiotic Given: Ancef 2 grams IV x1 Drain: Cisneros to straight drain Estimated Blood Loss: 800 Fluids Replaced: 1000 Procedure Start Time: 11:57 Time of Delivery: 12:01 Findings Description of Procedure: After informed consent was obtained the patient was taken the operating room she was given spinal anesthesia. She was then placed in the supine position. She was prepped and draped in the normal sterile fashion. Anesthesia was found to be adequate. At this time a Pfannenstiel skin incision was made with a knife was carried down to the underlying layer of the fascia. The fascial incision wa s then extended laterally using curved Guevara scissor. attention was then turned to the superior aspect of the fascial edge was grasped with 2 straight Brielle clamps tented up and the rectus muscle dissected off sharply using curved Guevara scissor. . Rectus muscles were then in the midline bluntly and peritoneum was entered bluntly. Gentle opposing traction was placed. At this time the vesicouterine peritoneum was identified. Scalpel was used to make a uterine incision in a low transverse fashion. The uterus was then entered bluntly gentle opposing traction was placed to extend this incision. Membranes were ruptured clear. Infant's head was brought to the uterine incision was delivered atraumatically. Delayed cord clamping performed. Mouth and nose suctioned. Cord was clamped and cut was handed to the waiting nursery team. The Placenta was removed from the uterus. The uterus was then removed from the abdominal cavity. The uterus was cleared of all clots and debris using a lap. At this time the uterine incision was reapproximated using #1 Vicryl in a running locked fashion. Second layer with 1-0 vicryl in figure of eight fashion placed. Bleeding from left angle continued. uterus was placed back in the abdominal cavity. Gutters were cleared of all clots and debris. Pressure placed. Floseal placed, area monitored, good hemostais appreciated. Hemostasis was appreciated. Posterior cul-de-sac was then cleared of all clots and debris.Uterine incision was reevaluated and noted to be of excellent hemostasis. At this time the peritoneum was grasped with Kellys reapproximated using #2 Vicryl suture in a running fashion. Fascia was then reapproximated using #1 Vicryl in a running fashion. Subcu layer was reapproximated with #2 0 plain gut suture in an interrupted fashion. Subcu layer was closed using 4-0 Monocryl in a subcu fashion. Dry sterile dressing was applied. Instrument lap needle count correct ?2. Anticipated normal postoperative course. Presentation: Positive for Vertex Amniotic Membrane Rupture Type: Spontaneous Amniotic Fluid Description: Clear Placental Delivery Description: Manual Removal Placenta Disposition: [facility] Cord Vessel Description: 3 Vessels Cord Entanglement: None A Gender: Male (1 minute): 9 (5 minute): 9 Delayed Cord Clamping: Yes Complications Risks of Surgery Discussed w/Patient: Bleeding, Anesthesia Risks, Infection and Injury to surrounding structure(s) including bowel and bladder Complications: none Admit VTE Documentation VTE Present on Admission: Yes VTE Mechan Device Prophylaxis: SCD's VTE Pharm Prophylaxis Ordered: Yes
[2023-07-10] MEDS: Oxytocin 15 Units/NS 250ml 15 UNITS/250 ML IV.SOLN 83 UNITS IV (13:05)
[2023-07-10] MEDS: Ketorolac 30 MG/ML Syringe IV ×2 (14:08→19:53)
[2023-07-10] MEDS: Lactated Ringers 1,000 ML 100 ML IV (16:06)
[2023-07-11 00:30] VITALS: BP 107/64; PULSE 77; PULSE 78; RESP 18; O2SAT 97
[2023-07-11] MEDS: Acetaminophen 500 MG Tablet 1000 MG PO ×4 (00:33→17:26)
[2023-07-11] MEDS: Enoxaparin 40 MG/0.4 ML Syringe SC (00:33)
[2023-07-11] MEDS: Ketorolac 30 MG/ML Syringe IV ×2 (02:28→09:49)
[2023-07-11 04:36] VITALS: BP 110/59; PULSE 82; RESP 16; TEMP 36.7; O2SAT 98
[2023-07-11 06:09] LABS: Hematocrit 33.8 % (37-47); Hemoglobin 11.2 g/dL (12.0-15.0); Mean Corp Hgb Conc 33.1 g/dL (32-36); Mean Corpuscular Hgb 31.5 pg (27.0-32.0); Mean Corpuscular Volume 94.9 fL (81-99); Mean Platelet Vol. 11.5 fl (6.2-12.0); Platelet Count 194 K/mm3 (150-450); RBC Distribution Width CV 12.8 % (11.6-14.6); RBC Distribution Width SD 44.5 fl (35.1-43.9); Red Blood Count 3.56 M/mm3 (4.2-5.4); White Blood Count 10.4 K/mm3 (4.4-11.0)
--- NOTE | 2023-07-11 08:23 | PN.OBGYN_ITS ---
Subjective Subjective Pain well controlled, average lochia. No n/v. Objective Data Objective Data Vital Signs: Vital Signs Temp Pulse Resp BP Pulse Ox O2 Del Method 98.0 F 82 16 110/59 L 98 Room Air 07/11/23 04:36 07/11/23 04:36 07/11/23 04:36 07/11/23 04:36 07/11/23 04:36 07/11/23 04:36 Oxygen Delivery Method Room Air Weight: 98.43 kg Body Mass Index (BMI) 35.0 Intake & Output: Intake and Output for Last 24 Hours 07/09/23 07/10/23 07/11/23 23:59 23:59 23:59 Intake Total 3377.5 / 3377.5 Output Total 2225 / 2225 300 / 300 Balance 1152.5 / 1152.5 -300 / -300 Lab / Micro Data 07/11/23 05:55 Labs: Laboratory Results - last 24 hr 07/10/23 10:00: WBC 7.7, RBC 4.41, Hgb 13.7, Hct 41.3, MCV 93.7, MCH 31.1, MCHC 33.2, RDW Std Deviation 43.4, RDW Coeff of Chintan 12.6, Plt Count 230, MPV 11.7, Immature Gran % (Auto) 0.600, Neut % (Auto) 70.1 H, Lymph % (Auto) 19.1, [place] % (Auto) 7.8, Eos % (Auto) 1.6, Baso % (Auto) 0.8, Absolute Neuts (auto) 5.4, Absolute Lymphs (auto) 1.48, Nucleated RBC % 0, Syphilis Total Ab Non-reactive, Blood Type A POSITIVE, Antibody Screen NEGATIVE 07/11/23 05:55: WBC 10.4, RBC 3.56 L, Hgb 11.2 L, Hct 33.8 L, MCV 94.9, MCH 31.5, MCHC 33.1, RDW Std Deviation 44.5 H, RDW Coeff of Chintan 12.8, Plt Count 194, MPV 11.5 Physical Exam Const alert General Appearance: cooperative GI GI Narrative: soft, moderate distention, fundus firm, appropriately tender. Abdominal bandage clean dry and intact Assessment & Plan (1) delivery delivered: PLAN: Postop day #1 status post repeat section. and patient is doing well. Routine care. Likely home tomorrow.
[2023-07-11] MEDS: Senna/Docusate Sodium 1 Tablet PO (09:49)
[2023-07-11 09:51] VITALS: BP 118/63; PULSE 94; RESP 14; TEMP 36.7; O2SAT 97
[2023-07-11 14:45] VITALS: BP 113/64; PULSE 90; RESP 15; TEMP 37.1; O2SAT 99
[2023-07-11] MEDS: Ibuprofen 600 MG Tablet PO ×2 (16:35→22:03)
[2023-07-11 20:13] VITALS: BP 111/63; PULSE 88; RESP 18; TEMP 36.6; O2SAT 98
[2023-07-12] MEDS: Enoxaparin 40 MG/0.4 ML Syringe SC (00:18)
[2023-07-12] MEDS: Acetaminophen 500 MG Tablet 1000 MG PO ×2 (00:18→06:34)
[2023-07-12 02:34] VITALS: BP 111/62; PULSE 81; RESP 18; TEMP 36.7; O2SAT 98
[2023-07-12] MEDS: Ibuprofen 600 MG Tablet PO ×2 (05:16→10:56)
[2023-07-12 07:55] VITALS: BP 110/57; PULSE 94; RESP 16; TEMP 36.6; O2SAT 98
--- NOTE | 2023-07-12 08:10 | DCINST_ITS ---
Discharge Instructions Diet Discharge Diet: No restrictions Activity Discharge Activity: May Shower May resume sexual activity in: 6 weeks Weight Bearing Status: Weight bearing as tolerated Dressing / Incision Call your doctor if your incision/area has: Continuous Slow Oozing, Sudden Increased Bleeding, Increased Pain/ Swelling, Increased Redness, Foul Smelling Discharge and Swelling at the incision site Call your doctor if you observe: Fever of 101 or Higher, Coldness, Increased Pain, Change in Color, Inability to urinate, Inability to have a bowel movement, Using more than 1 pad per hour, Shortness of breath, Dizziness, Fainting spells, Chest pain, Increased palpitations (irregular heartbeat), Calf discomfort and Uncontrolled pain Suture Line Care: Avoid Pulling/Pushing and Avoid Pinching/Bending Remove Dressing in: 1 week Cleanse incision/area with: Soap & Water Follow Up Care Please Follow Up With: Grace Laurent MD When: Follow up in 2 and 6 weeks for visits. Test Results: Test results from this visit will be discussed in further detail at your follow- up appointment, if applicable. Discharge Plan Admission Admit Date/Time: 07/10/23 09:30 Primary Reason for Your Visit: section Attending Provider: Grace Laurent Primary Care Provider: Care Physician,Kiera Primary Discharge Orders/Prescriptions Prescriptions: New acetaminophen 500 mg Tablet 1,000 mg PO Q6 Qty: 0 0RF ibuprofen 600 mg Tablet 600 mg PO Q6H Qty: 0 0RF Continued Prenatabs FA 1 tab PO DAILY Vitamin D 2,000 mg PO DAILY Referrals / Follow Up: Care Physician,No Primary [Primary Care Provider] - Disposition Disposition (needs filled in before D/C Order can be placed): Home, Self Care
--- NOTE | 2023-07-12 08:10 | PCM.PN.OB ---
Subjective Subjective Pain controlled Objective Data Objective Data Vital Signs: Vital Signs Temp Pulse Resp BP Pulse Ox O2 Del Method 97.8 F 94 16 110/57 L 98 Room Air 07/12/23 07:55 07/12/23 07:55 07/12/23 07:55 07/12/23 07:55 07/12/23 07:55 07/12/23 07:55 Oxygen Delivery Method Room Air Weight: 217 lb Body Mass Index (BMI) 35.0 Intake & Output: Intake and Output for Last 24 Hours 07/10/23 07/11/23 07/12/23 23:59 23:59 23:59 Intake Total 3377.5 / 3377.5 Output Total 2225 / 2225 700 / 700 Balance 1152.5 / 1152.5 -700 / -700 Lab / Micro Data 07/11/23 05:55 Physical Exam Const alert, oriented x3 and no apparent distress HEENT normocephalic GI soft to palpation, non-tender and non-distended GI Narrative: fundus firm, mid & below umbilicus Incision - bandage c/d/i Extremity normal to inspection and no calf tenderness Assessment & Plan (1) delivery delivered: COMMENT: POD#2 PLAN: Plan D/c home per patient request
== END 2023-07-12 11:12 | disposition home or self-care (01) | DRG 788 ==
PROVIDERS: Admitting Provider Obstetrics & Gynecology; Visit Provider Obstetrics & Gynecology
PROC: 10D00Z1 Extraction of Products of Conception, Low, Open Approach (ICD-10-PCS; CPT 59514; principal; 2023-07-10 11:45)
DX: O34.219 Maternal care for unspecified type scar from previous cesarean delivery (principal); Z37.0 Single live birth; Z3A.40 40 weeks gestation of pregnancy
CPT/HCPCS: 59050; 85025; 85027; 86780; 86850; 86900; 86901; 99221; J7120; G0378